=== PATIENT | male | born 1990 | race Caucasian/White ===

== ENCOUNTER 2018-02-13 14:11 | Emergency (ER) | payer MEDICAID ==
[~2018-02-13] VITALS: Ht 185.4 cm; Wt 81.6 kg
[2018-02-13 14:16] VITALS: BP_SYST 142
[2018-02-13 14:35] VITALS: BP_SYST 142
== END 2018-02-13 14:35 | disposition home or self-care (01) ==
LOC: SED 14:11
DX: L01.00 Impetigo, unspecified (principal); R03.0 Elevated blood-pressure reading, without diagnosis of hypertension; J45.909 Unspecified asthma, uncomplicated
CPT/HCPCS: 99283